=== PATIENT | female | born 1985 | race Caucasian/White ===

== ENCOUNTER 2023-10-10 20:31 | Outpatient (REF) | payer OTHER, SELFPAY ==
[2023-10-14 11:13] LABS: Age Gdln ACOG Testing Note (.); HPV Aptima Negative (Negative); IGP, Aptima HPV, rfx 16/18,45 Note (.)
== END 2023-10-10 20:32 | disposition home or self-care (01) ==
LOC: LAB 20:31
PROVIDERS: Visit Provider Physician Assistant
DX: Z01.419 Encounter for gynecological examination (general) (routine) without abnormal findings (principal)
CPT/HCPCS: 87624; G0145

== ENCOUNTER 2024-10-22 21:37 | Outpatient (REF) | payer OTHER, SELFPAY ==
--- OUTSIDE RECORDS SUMMARY | 2024-10-22 21:41 | XMS_ITS | CCD ---
Author Organization [facility] Care Team Providers [employer] Name Role Phone MISC, DR ALCANTAR Primary Care Unavailable DIA ., DR ESPINOZA Consulting Unavailable DIA ., DR ESPINOZA Admitting Unavailable DIA ., DR ESPINOZA Attending Unavailable MISC, DR ALCANTAR Primary Care Unavailable DIA ., DR ESPINOZA Consulting Unavailable DIA ., DR ESPINOZA Attending Unavailable DIA ., DR ESPINOZA Admitting Unavailable ZIEBER, DR CHET Mcmahan Consulting Unavailable DIA ., DR ESPINOZA Consulting Unavailable MISC, DR ALCANTAR Primary Care Unavailable DIA ., DR ESPINOZA Attending Unavailable DIA ., DR ESPINOZA Admitting Unavailable MISC, DR ALCANTAR Primary Care Unavailable DIA ., DR ESPINOZA Attending Unavailable DIA ., DR ESPINOZA Admitting Unavailable DIA ., DR ESPINOZA Attending Unavailable DIA ., DR ESPINOZA Admitting Unavailable DIA ., DR ESPINOZA Consulting Unavailable MISC, DR ALCANTAR Primary Care Unavailable MORALESCARLITO Attending Unavailable DIA ., DR ESPINOZA Consulting Unavailable MORALESCARLITO Admitting Unavailable MISC, DR ALCANTAR Primary Care Unavailable ZIEBER, DR CHET Mcmahan Consulting Unavailable MORALESCARLITO Consulting Unavailable MISC, DR ALCANTAR Primary Care Unavailable DIA ., DR ESPINOZA Consulting Unavailable DIA ., DR ESPINOZA Attending Unavailable DIA ., DR ESPINOZA Admitting Unavailable DIA ., DR ESPINOZA Consulting Unavailable MISC, DR ALCANTAR Primary Care Unavailable DIA ., DR ESPINOZA Attending Unavailable DIA ., DR ESPINOZA Admitting Unavailable ZIEBER, DR CHET Mcmahan Consulting Unavailable KARASIK ., DR GIBBS Admitting Unavailabl e KARASIK ., DR GIBBS Consulting Unavailabl e KARASIK ., DR GIBBS Attending Unavailabl e MISC, DR ALCANTAR Primary Care Unavailable TALBOTT, DR FRANKLYN Dutton Consulting Unavailable DIA ., DR ESPINOZA Attending Unavailable MISC, DR ALCANTAR Primary Care Unavailable DIA ., DR ESPINOZA Consulting Unavailable DIA ., DR ESPINOZA Admitting Unavailable ZIEBER, DR CHET Mcmahan Consulting Unavailable KARASIK ., DR GIBBS Attending Unavailabl e KARASIK ., DR GIBBS Admitting Unavailabl e MISC, DR ALCANTAR Primary Care Unavailable TALBOTT, DR FRANKLYN Dutton Consulting Unavailable DIA ., DR ESPINOZA Consulting Unavailable DIA ., DR ESPINOZA Consulting Unavailable DIA ., DR ESPINOZA Attending Unavailable DIA ., DR ESPINOZA Admitting Unavailable MISC, DR ALCANTAR Primary Care Unavailable ZIEBER, DR CHET Mcmahan Consulting Unavailable MISC, DR ALCANTAR Primary Care Unavailable DIA ., DR ESPINOZA Consulting Unavailable DIA ., DR ESPINOZA Attending Unavailable DIA ., DR ESPINOZA Admitting Unavailable DIA ., DR ESPINOZA Procedure Practitioner Unavail able ROMERO HENNING Consulting Unavailable MISC, DR ALCANTAR Primary Care Unavailable DIA ., DR ESPINOZA Attending Unavailable DIA ., DR ESPINOZA Admitting Unavailable DIA ., DR ESPINOZA Consulting Unavailable REQUEST, DR JAELYN LISTED Primary Care Unavaila ble DIA ., DR ESPINOZA Attending Unavailable DIA ., DR ESPINOZA Admitting Unavailable ZIEBER, DR CHET Mcmahan Consulting Unavailable MISC, DR ALCANTAR Primary Care Unavailable DIA ., DR ESPINOZA Consulting Unavailable DIA ., DR ESPINOZA Attending Unavailable DIA ., DR ESPINOZA Admitting Unavailable DIA ., DR ESPINOZA Attending Unavailable MISC, DR ALCANTAR Primary Care Unavailable DIA ., DR ESPINOZA Consulting Unavailable DIA ., DR ESPINOZA Admitting Unavailable ROBERTO LIVINGSTON Attending Unavailable Unavailable Primary Care Provider Unavailabl e Medications Current Medications Medication Drug Class(es) Dates Sig (Normalized) Sig (Original) levonorgestrel 0.832424 mg/hr intrauterine system (3 sources) Progestin, Progestin-containing Intrauterine Device Levonorgestrel (Mirena, 52 MG,) 20 MCG/DAY intrauterine device 52 mg by Intrauterine route if needed (5 years) Active 24 hr metFORMIN hydrochloride 500 mg extended release oral tablet (2 sources) Biguanide Start: 10-22-2024 End: 10-17-2025 take 1 tablet by mouth every twenty-four hours at mealtime metFORMIN XR (Glucophage-XR) 500 MG 24 hr tablet Indications: Encounter for weight management Take 1 tablet (500 mg) by mouth in the evening. Take with meals Do not crush, chew, or split. 30 tablet 11 10/22/2024 10/17/2025 Active phentermine hydrochloride 37.5 mg oral tablet (2 sources) Sympathomimetic Amine Anorectic Start: 10-22-2024 End: 11-21-2024 take 1 tablet by mouth before mealtime phentermine (Adipex-P) 37.5 MG tablet Indications: Encounter for weight management Take 1 tablet (37.5 mg) by mouth in the morning. Take before meals. 30 tablet 10/22/2024 11/21/2024 Active SUMAtriptan 50 mg oral tablet (3 sources) Serotonin-1b and Serotonin-1d Receptor Agonist Start: 04-26-2023 take 1 tablet by mouth once SUMAtriptan (Imitrex) 50 MG tablet Take 50 mg by mouth 1 (one) time if needed for migraine 04/26/2023 Active Problems Active Problems Problem Classification Problem Date Documented Date Episodic/Chronic Administrative/social admission (2 sources) Patient encounter status; Translations: [Persons encountering health services in other specified circumstances] 10-22-2024 Episodic Menstrual disorders (4 sources) Irregular menstruation, unspecified; Translations: [IRREGULAR MENSTRUATION UNSPECIFIED] Onset: 11-27-2021 Chronic Other screening for suspected conditions (not mental disorders or infectious disease) (20 sources) Encounter for screening for malignant neoplasm of cervix; Translations: [Encounter for screening for Streptococcus B] Onset: 12-01-2021 Episodic Unclassified (1 source) CONTACT W/AND (SUSP) EXPOS COVID-19; Translations: [CONTACT W/AND (SUSP) EXPOS COVID-19] Onset: 06-21-2022 Past or Other Problems Problem Classification Problem Date Documented Date Episodic/Chronic Immunizations and screening for infectious disease (1 source) Contact with and (suspected) exposure to infections with a predominantly sexual mode of transmission; Translations: [CONTCT W EXPOS INFECT SEXUAL TRNSMS] Onset: 05-22-2022 Episodic Other complications of ; puerperium affecting management of mother (1 source) Other viral diseases complicating childbirth; Translations: [OTH VIRAL DISEASES COMP CHILDBIRTH] Onset: 06-21-2022 Episodic Other complications of ; puerperium affecting management of mother (4 sources) Maternal care for other (suspected) abnormality and damage, not applicable or unspecified; Translations: [MAT CARE OTH ABN DAMGE NA/UNS] Onset: 03-03-2022 Episodic Other complications of (4 sources) Supervision of elderly multigravida, third trimester; Translations: [SUP ELDER MULTIGRAVIDA THIRD TRI] Onset: 06-09-2022 Episodic Other complications of (4 sources) Other specified related conditions, third trimester; Translations: [OTH SPEC PREG RELATED COND 3RD TRI] Onset: 04-07-2022 Episodic Other complications of (1 source) Abnormal ultrasonic finding on screening of mother; Translations: [ABNORM US SCREEN MOTHER] Onset: 02-02-2022 Episodic Other complications of (1 source) Maternal care for benign tumor of corpus uteri, first trimester; Translations: [MAT CARE HUEY TUMR CORPUS UT 1ST TRI] Onset: 11-19-2021 Episodic Other female genital disorders (1 source) Other specified noninflammatory disorders of vagina; Translations: [OTH SPEC NONINFLAMMATORY D/O VAGINA] Onset: 05-22-2022 Episodic Other and delivery including normal (10 sources) Single live ; Translations: [Encounter for supervision of normal , unspecified, unspecified trimester] Onset: 11-27-2021 Episodic Residual codes; unclassified (1 source) 39 weeks gestation of ; Translations: [39 WEEKS GESTATION OF ] Onset: 06-21-2022 Episodic Residual codes; unclassified (1 source) 38 weeks gestation of ; Translations: [38 WEEKS GESTATION OF ] Onset: 06-10-2022 Episodic Residual codes; unclassified (1 source) 37 weeks gestation of ; Translations: [37 WEEKS GESTATION OF ] Onset: 06-01-2022 Episodic Residual codes; unclassified (1 source) 36 weeks gestation of ; Translations: [36 WEEKS GESTATION OF ] Onset: 05-24-2022 Episodic Residual codes; unclassified (1 source) 30 weeks gestation of ; Translations: [30 WEEKS GESTATION OF ] Onset: 04-11-2022 Episodic Residual codes; unclassified (1 source) 20 weeks gestation of ; Translations: [20 WEEKS GESTATION OF ] Onset: 02-02-2022 Episodic Residual codes; unclassified (1 source) 17 weeks gestation of ; Translations: [17 WEEKS GESTATION OF ] Onset: 01-18-2022 Episodic Residual codes; unclassified (1 source) 8 weeks gestation of ; Translations: [8 WEEKS GESTATION OF ] Onset: 11-19-2021 Episodic Unclassified (2 sources) Patient encounter status 10-22-2024 Viral infection (5 sources) Herpesviral infection, unspecified; Translations: [HERPESVIRAL INFECTION UNSPECIFIED] Onset: 06-09-2022 Episodic Results Test Name Value Interpretation Reference Range Facility Urinalysis macro (dipstick) panel (U)on 10-22-2024 Bilirubin, UA Negative Negative - 4(70) +++ mg/dL [facility] Blood, UA Negative Negative - 50 Reynaldo/mcL [facility] Clarity, UA Clear [facility] Color, UA Yellow [facility] Glucose, UA Negative Negative - 2000(110) ++++ mg/dL [facility] Interpretation and review of laboratory results Normal [facility] Ketones, UA Negative Negative - 160(16) ++++ mg/dL [facility] Leukocytes, UA Negative Negative - 500+++ Rubin/mcL [facility] Nitrite, UA Negative Negative - Positive [facility] pH, UA 5.5 5 - 9 [facility] Protein, UA Negative Negative - 2000(20) ++++ mg/dL [facility] Spec Grav, UA 1.02 1 - 1.03 [facility] Urobilinogen, UA 0.2 0.2 - 12 mg/dL [facility] PAP ACOG PANEL 2: 30 to 65on 09-07-2022 . . [facility] Comment on above: Result Comment: Perf ormed at: WB Performed By: #### C VDTB #### [facility] [address] [place] [address] Dr. Sharan Sanchez Age Gdln ACOG Testing 30-65 [facility] Comment on above: Performed By: #### C VDTB #### [facility] [address] [place], [place] [address] Dr. Sharan Sanchez DIAGNOSIS: Comment [facility] Comment on above: Result Comment: NEGA TIVE FOR INTRAEPITHELIAL LESION OR MALIGNANCY. Performed at: WB Performed By: #### C VDTBH #### [facility] [address] [place] [address] Dr. Sharan Sanchez HPV Aptima Negative Normal Negative [facility] Comment on above: Result Comment: This nucleic acid amplification test detects fourteen high-risk HPV types (16,18,31,33,35,39,45,51,52,56,58,59,66,68) without differentiation. Performed at: =G Performed By: #### C VDTBH #### [facility] [address] [address] [address] Sharan Sanchez HPV Genotype Reflex Comment [facility] Comment on above: Result Comment: Crit eria not met, HPV Genotype not performed. Performed at: WB Performed By: #### C VDTBH #### [facility] [address] [place] [address] Dr. Sharan Sanchez Methodology: Comment Normal [facility] Comment on above: Result Comment: This liquid based ThinPrep(R) pap test was screened with the use of an image guided system. Performed at: WB Performed By: #### C VDTBH #### [facility] [address] [place] [address] Dr. Sharan Sanchez Note: Comment Normal [facility] Comment on above: Result Comment: The Pap smear is a screening test designed to aid in the detection of premalignant and malignant conditions of the uterine cervix. It is not a diagnostic procedure and should not be used as the sole means of detecting cervical cancer. Both false-positive and false-negative reports do occur. . Performed at: WB Performed By: #### C VDTBH #### [facility] [address] [address] [address] Sharan Sanchez Performed by: Comment Normal [facility] Comment on above: Result Comment: Prema Acosta, Insurance Customer Service Specialist (ASCP) Performed at: WB Performed By: #### C VDTBH #### [facility] [address] [place] [address] Dr. Sharan Sanchez Specimen adequacy: Comment Normal [facility] Comment on above: Result Comment: Sati sfactory for evaluation. Endocervical and/or squamous metaplastic cells (endocervical component) are present. Performed at: WB Performed By: #### C VDTB #### [facility] [address] [place] [address] Dr. Sharan Sanchez CBC AUTO DIFFon 06-10-2022 BASO # 0.0 103/ul Normal 0.0-0.1 [facility] Comment on above: Performed By: #### C BC #### [facility] [address] [place] [address] Dr. Sharan Sanchez Basophils/100 WBC (Bld) 0.2 % Normal 0.2-2.0 [facility] Comment on above: Performed By: #### C BC #### [facility] [address] [place] [address] Dr. Sharan Sanchez EO # 0.1 103/ul Normal 0.0-0.7 [facility] Comment on above: Performed By: #### C BC #### [facility] [address] [place] [address] Dr. Sharan Sanchez Eosinophils/100 WBC (Bld) 0.5 % Critically low 0.9-7.0 [facility] Comment on above: Performed By: #### C BC #### [facility] [address] [place] [address] Dr. Sharan Sanchez Erythrocyte distribution width (RBC) [Ratio] 13.4 % Normal 11.0-15.0 [facility] Comment on above: Performed By: #### C BC #### [facility] [address] [place] [address] Dr. Sharan Sanchez Hematocrit (Bld) [Volume fraction] 31.9 % Critically low 36.0-48.0 [facility] Comment on above: Performed By: #### C BC #### [facility] [address] [place] [address] Dr. Sharan Sanchez Hemoglobin (Bld) [Mass/Vol] 11.1 g/dL Critically low 12.0-16.0 [facility] Comment on above: Performed By: #### C BC #### [facility] [address] [place] [address] Dr. Sharan Sanchez IG # 0.06 10e3/ul Critically high 0.00-0.03 [facility] Comment on above: Performed By: #### C BC #### [facility] [address] [place] [address] Dr. Sharan Sanchez IG % 0.6 % Critically high 0.0-0.5 [facility] Comment on above: Performed By: #### C BC #### [facility] [address] [place] [address] Dr. hSaran Sanchez LYMPH # 1.2 103/ul Normal 1.2-3.8 [facility] Comment on above: Performed By: #### C BC #### [facility] [address] [place] [address] Dr. Sharan Sanchez Lymphocytes/100 WBC (Bld) 12.8 % Critically low 20.5-60.0 [facility] Comment on above: Performed By: #### C BC #### [facility] [address] [place] [address] Dr. Sharan Sanchez MANUAL DIFF REQ NO Normal [facility] Comment on above: Performed By: #### C BC #### [facility] [address] [place] [address] Dr. Sharan Sanchez MCH (RBC) [Entitic mass] 33.0 pg Normal 26.7-34.0 [facility] Comment on above: Performed By: #### C BC #### [facility] [address] [place] [address] Dr. Sharan Sanchez MCHC (RBC) [Mass/Vol] 34.8 g/dL Normal 29.9-35.2 [facility] Comment on above: Performed By: #### C BC #### [facility] [address] [place] [address] Dr. Sharan Sanchez MCV (RBC) [Entitic vol] 94.9 fL Normal 81.0-99.0 [facility] Comment on above: Performed By: #### C BC #### [facility] [address] [address] [address] Sharan Sanchez MONO # 0.4 103/ul Normal 0.3-0.8 [facility] Comment on above: Performed By: #### C BC #### [facility] [address] [address] [address] Sharan Sanchez Monocytes/100 WBC (Bld) 4.3 % Normal 1.7-12.0 [facility] Comment on above: Performed By: #### C BC #### [facility] [address] [address] [address] Sharan Sanchez NEUT # 7.8 103/ul Critically high 1.4-6.5 [facility] Comment on above: Performed By: #### C BC #### [facility] [address] [place] [address] Dr. Sharan Sanchez Neutrophils/100 WBC (Bld) 81.6 % Critically high 43.0-75.0 [facility] Comment on above: Performed By: #### C BC #### [facility] [address] [place] [address] Dr. Sharan Sanchez Platelet mean volume (Bld) [Entitic vol] 10.9 fL Normal 9.5-13.5 [facility] Comment on above: Performed By: #### C BC #### [facility] [address] [place] [address] Dr. Sharan Sanchez PLT 146 103/ul Critically low 150-450 [facility] Comment on above: Performed By: #### C BC #### [facility] [address] [place] [address] Dr. Sharan Sanchez RBC 3.36 106/ul Critically low 4.20-5.40 [facility] Comment on above: Performed By: #### C BC #### [facility] [address] [place] [address] Dr. Sharan Sanchez WBC 9.6 103/ul Normal 4.0-11.0 [facility] Comment on above: Performed By: #### C BC #### [facility] [address] [place] [address] Dr. Sharan Sanchez Covid-19 PCR ([facility])on 05-14 SARS-CoV-2 (COVID-19) RNA SAVAGE+probe Ql (Unsp spec) Not detected Normal NOT DETECTED [facility] Comment on above: Result Comment: When diagnostic testing is negative, the possibility of a false negative should be considered in the context of a patient's recent exposures and the presence of clinical signs and symptoms consistent with SARS-CoV-2. This test is not yet approved or cleared by the [place] FDA. When there are no FDA-approved or cleared tests available, and other criteria are met, FDA can make tests available under an emergency access mechanism called an Emergency Use Authorization (EUA). The EUA for this test is supported by the [place] of Health and Human Service's declaration that circumstances exist to justify the emergency use of in vitro diagnostics for the detection and/or diagnosis of the virus that causes COVID-19. This EUA will remain in effect for the duration of the COVID-19 declaration justifying emergency of IVDs, unless it is terminated or revoked by the FDA (after which the test may no longer be used). Performed By: #### C VDTBH #### [facility] [address] [place] [address] Dr. Sharan Sanchez CBC AUTO DIFFon 06-09-2022 BASO # 0.0 103/ul Normal 0.0-0.1 [facility] Comment on above: Performed By: #### C VDTBH #### [facility] [address] [place] [address] Dr. Sharan Sanchez Basophils/100 WBC (Bld) 0.2 % Normal 0.2-2.0 [facility] Comment on above: Performed By: #### C VDTBH #### [facility] [address] [place] [address] Dr. Sharan Sanchez EO # 0.0 103/ul Normal 0.0-0.7 [facility] Comment on above: Performed By: #### C VDTBH #### [facility] [address] [place] [address] Dr. Sharan Sanchez Eosinophils/100 WBC (Bld) 0.4 % Critically low 0.9-7.0 [facility] Comment on above: Performed By: #### C VDTBH #### [facility] [address] [place] [address] Dr. Sharan Sanchez Erythrocyte distribution width (RBC) [Ratio] 13.3 % Normal 11.0-15.0 [facility] Comment on above: Performed By: #### C VDTBH #### [facility] [address] [place] [address] Dr. Sharan Sanchez Hematocrit (Bld) [Volume fraction] 37.5 % Normal 36.0-48.0 [facility] Comment on above: Performed By: #### C VDTBH #### [facility] [address] [place] [address] Dr. Sharan Sanchez Hemoglobin (Bld) [Mass/Vol] 12.9 g/dL Normal 12.0-16.0 [facility] Comment on above: Performed By: #### C VDTBH #### [facility] [address] [place] [address] Dr. Sharan Sanchez IG # 0.07 10e3/ul Critically high 0.00-0.03 [facility] Comment on above: Performed By: #### C VDTBH #### [facility] [address] [place] [address] Dr. Sharan Sanchez IG % 0.7 % Critically high 0.0-0.5 [facility] Comment on above: Performed By: #### C VDTBH #### [facility] [address] [place] [address] Dr. Sharan Sanchez LYMPH # 1.7 103/ul Normal 1.2-3.8 [facility] Comment on above: Performed By: #### C VDTBH #### [facility] [address] [place] [address] Dr. Sharan Sanchez Lymphocytes/100 WBC (Bld) 18.4 % Critically low 20.5-60.0 [facility] Comment on above: Performed By: #### C VDTBH #### [facility] [address] [place] [address] Dr. Sharan Sanchez MANUAL DIFF REQ NO Normal [facility] Comment on above: Performed By: #### C VDTBH #### [facility] [address] [place] [address] Dr. Sharan Sanchez MCH (RBC) [Entitic mass] 32.3 pg Normal 26.7-34.0 [facility] Comment on above: Performed By: #### C VDTBH #### [facility] [address] [place] [address] Dr. Sharan Sanchez MCHC (RBC) [Mass/Vol] 34.4 g/dL Normal 29.9-35.2 [facility] Comment on above: Performed By: #### C VDTBH #### [facility] [address] [place] [address] Dr. Sharan Sanchez MCV (RBC) [Entitic vol] 93.8 fL Normal 81.0-99.0 [facility] Comment on above: Performed By: #### C VDTBH #### [facility] [address] [place] [address] Dr. Sharan Sanchez MONO # 0.5 103/ul Normal 0.3-0.8 [facility] Comment on above: Performed By: #### C VDTBH #### [facility] [address] [place] [address] Dr. Sharan Sanchez Monocytes/100 WBC (Bld) 5.8 % Normal 1.7-12.0 [facility] Comment on above: Performed By: #### C VDTBH #### [facility] [address] [place] [address] Dr. Sharan Sanhcez NEUT # 7.0 103/ul Critically high 1.4-6.5 [facility] Comment on above: Performed By: #### C VDTBH #### [facility] [address] [place] [address] Dr. Sharan Sanchez Neutrophils/100 WBC (Bld) 74.5 % Normal 43.0-75.0 [facility] Comment on above: Performed By: #### C VDTBH #### [facility] [address] [address] [address] Sharan Sanchez Platelet mean volume (Bld) [Entitic vol] 10.9 fL Normal 9.5-13.5 [facility] Comment on above: Performed By: #### C VDTBH #### [facility] [address] [address] [address] Sharan Sanchez PLT 195 103/ul Normal 150-450 [facility] Comment on above: Performed By: #### C VDTBH #### [facility] [address] [address] [address] Sharan Sanchez RBC 4.00 106/ul Critically low 4.20-5.40 [facility] Comment on above: Performed By: #### C VDTBH #### [facility] [address] [place] [address] Dr. Sharan Sanchez WBC 9.4 103/ul Normal 4.0-11.0 [facility] Comment on above: Performed By: #### C VDTBH #### [facility] [address] [place] [address] Dr. Sharan Sanchez DRUG SCREEN RAPID (URINE)on 06-09-2022 AMP Negative Normal NEGATIVE [facility] Comment on above: Performed By: #### D RUGRPD #### [facility] [address] [place] [address] Dr. Sharan Sanchez BAR Negative Normal NEGATIVE [facility] Comment on above: Performed By: #### D RUGRPD #### [facility] [address] [place] [address] Dr. Sharan Sanchez BUP Negative Normal NEGATIVE [facility] Comment on above: Performed By: #### D RUGRPD #### [facility] [address] [place] [address] Dr. Sharan Sanchez BZO Negative Normal NEGATIVE [facility] Comment on above: Performed By: #### D RUGRPD #### [facility] [address] [place] [address] Dr. Sharan Sanchez BERTRAM Negative Normal NEGATIVE [facility] Comment on above: Performed By: #### D RUGRPD #### [facility] [address] [place] [address] Dr. Sharan Sanchez CUT-OFFS SEE BELOW Normal [facility] Comment on above: Result Comment: AMP (Amphetamine): 500ng/mL, BAR (Barbituates): 200 ng/mL, BZO (Benzodiazepines): 150 ng/mL, BUP (Buprenorphine): 10 ng/mL, BERTRAM (Cocaine): 150 ng/mL, mAMP (Methamphetamine): 500 ng/mL, MTD (Methadone): 200 ng/mL, OPI (Opiates): 100 ng/mL, OXY (Oxycodone): 100 ng/mL, PCP (Phencyclidine): 25 ng/mL, PPX (Propoxyphene): 300 ng/mL, THC (Cannabinoids): 50 ng/mL, TCA (Trycyclic Antidepressants): 300 ng/mL Performed By: #### D RUGRPD #### [facility] [address] [place] [address] Dr. Sharan Sanchez DRUG CUT HEADER DRUG CLASS TEST SYSTEM CUT-OFF CONCENTRATIONS ARE FOLLOWS: Normal [facility] Comment on above: Performed By: #### D RUGRPD #### [facility] [address] [place] [address] Dr. Sharan Sanchez mAMP Negative Normal NEGATIVE [facility] Comment on above: Performed By: #### D RUGRPD #### [facility] [address] [place] [address] Dr. Sharan Sanchez MTD Negative Normal NEGATIVE [facility] Comment on above: Performed By: #### D RUGRPD #### [facility] [address] [place] [address] Dr. Sharan Sanchez OPI Negative Normal NEGATIVE [facility] Comment on above: Performed By: #### D RUGRPD #### [facility] [address] [place] [address] Dr. Sharan Sanchez OXY Negative Normal NEGATIVE [facility] Comment on above: Performed By: #### D RUGRPD #### [facility] [address] [place] [address] Dr. Sharan Sanchez PCP Negative Normal NEGATIVE [facility] Comment on above: Performed By: #### D RUGRPD #### [facility] [address] [place] [address] Dr. Sharan Sanchez PPX Negative Normal NEGATIVE [facility] Comment on above: Performed By: #### D RUGRPD #### [facility] [address] [place] [address] Dr. Sharan Sanchez TCA Negative Normal NEGATIVE [facility] Comment on above: Performed By: #### D RUGRPD #### [facility] [address] [place] [address] Dr. Sharan Sanchez THC Negative Normal NEGATIVE [facility] Comment on above: Performed By: #### D RUGRPD #### [facility] [address] [place] [address] Dr. Sharan Sanchez RESPIRATORY PANEL PLUSon Adenovirus Not detected Normal NOT DETECTED [facility] Comment on above: Performed By: #### H CVPCRR #### [facility] [address] [place] [address] Dr. Sharan Pimentel. Parapertusis Not detected Normal NOT DETECTED [facility] Comment on above: Performed By: #### H CVPCRR #### [facility] [address] [place] [address] Dr. Sharan Ambriz Pertussis Not detected Normal NOT DETECTED [facility] Comment on above: Performed By: #### H CVPCRR #### [facility] [address] [place] [address] Dr. Sharan Sanchez Chlamydia Pneumoniae Not detected Normal NOT DETECTED [facility] Comment on above: Performed By: #### H CVPCRR #### [facility] [address] [place] [address] Dr. Sharan Sanchez Coronavirus 229E Not detected Normal NOT DETECTED [facility] Comment on above: Performed By: #### H CVPCRR #### [facility] [address] [place] [address] Dr. Sharan Sanchez Coronavirus HKU1 Not detected Normal NOT DETECTED [facility] Comment on above: Performed By: #### H CVPCRR #### [facility] [address] [place] [address] Dr. Sharan Sanchez Coronavirus NL63 Not detected Normal NOT DETECTED [facility] Comment on above: Performed By: #### H CVPCRR #### [facility] [address] [place] [address] Dr. Sharan Sanchez Coronavirus OC43 Not detected Normal NOT DETECTED [facility] Comment on above: Performed By: #### H CVPCRR #### [facility] [address] [place] [address] Dr. Sharan Sanchez Influenza A H1 2009 Not detected Normal NOT DETECTED [facility] Comment on above: Performed By: #### H CVPCRR #### [facility] [address] [place] [address] Dr. Sharan Sanchez Influenza A H3 Not detected Normal NOT DETECTED [facility] Comment on above: Performed By: #### H CVPCRR #### [facility] [address] [place] [address] Dr. Sharan Sanchez Influenza B Not detected Normal NOT DETECTED [facility] Comment on above: Performed By: #### H CVPCRR #### [facility] [address] [place] [address] Dr. Sharan Sanchez Metapneumovirus Not detected Normal NOT DETECTED [facility] Comment on above: Performed By: #### H CVPCRR #### [facility] [address] [place] [address] Dr. Sharan Sanchez Mycoplas. Pneumoniae Not detected Normal NOT DETECTED [facility] Comment on above: Performed By: #### H CVPCRR #### [facility] [address] [place] [address] Dr. Sharan Sanchez Parainfluenza 1 Not detected Normal NOT DETECTED [facility] Comment on above: Performed By: #### H CVPCRR #### [facility] [address] [place] [address] Dr. Sharan Sanchez Parainfluenza 2 Not detected Normal NOT DETECTED [facility] Comment on above: Performed By: #### H CVPCRR #### [facility] [address] [place] [address] Dr. Sharan Sanchez Parainfluenza 3 Not detected Normal NOT DETECTED [facility] Comment on above: Performed By: #### H CVPCRR #### [facility] [address] [place] [address] Dr. Sharan Sanchez Parainfluenza 4 Not detected Normal NOT DETECTED [facility] Comment on above: Performed By: #### H CVPCRR #### [facility] [address] [place] [address] Dr. Sharan Sanchez Rhino/Enterovirus Not detected Normal NOT DETECTED [facility] Comment on above: Performed By: #### H CVPCRR #### [facility] [address] [place] [address] Dr. Sharan Sanchez RP2 Header 1 RESPIRATORY PANEL: VIRUSES Normal [facility] Comment on above: Performed By: #### H CVPCRR #### [facility] [address] [place] [address] Dr. Sharan Sanchez RP2 Header 2 RESPIRATORY PANEL: BACTERIA Normal [facility] Comment on above: Performed By: #### H CVPCRR #### [facility] [address] [place] [address] Dr. Sharan Sanchez RSV Not detected Normal NOT DETECTED [facility] Comment on above: Performed By: #### H CVPCRR #### [facility] [address] [place] [address] Dr. Sharan Sanchez SARS-CoV-2 (COVID-19) RNA SAVAGE+probe Ql (Unsp spec) Not detected Normal NOT DETECTED [facility] Comment on above: Performed By: #### H CVPCRR #### [facility] [address] [place] [address] Dr. Sharan Sanchez TYPE AND SCREENon 06-09-2022 TYPE AND SCREEN Negative Normal [facility] Comment on above: Performed By: #### T NS #### [facility] [address] [place] [address] Dr. 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 Sharan Sanchez Clarity (U) CLEAR Normal CLEAR [facility] Comment on above: Performed By: #### H CVPCRR #### [facility] [address] [place] [address] Dr. Sharan Sanchez Color (U) YELLOW Normal YELLOW [facility] Comment on above: Performed By: #### H CVPCRR #### [facility] [address] [place] [address] Dr. Sharan Sanchez Glucose Ql (U) Negative Normal NEGATIVE [facility] Comment on above: Performed By: #### H CVPCRR #### [facility] [address] [place] [address] Dr. Sharan Sanchez Hemoglobin Ql (U) SMALL Abnormal NEGATIVE [facility] Comment on above: Performed By: #### H CVPCRR #### [facility] [address] [place] [address] Dr. Sharan Sanchez Ketones Ql (U) >=80 Abnormal NEGATIVE [facility] Comment on above: Performed By: #### H CVPCRR #### [facility] [address] [place] [address] Dr. Sharan Sanchez LEUKOCYTES Negative Normal NEGATIVE [facility] Comment on above: Performed By: #### H CVPCRR #### [facility] [address] [place] [address] Dr. Sharan Sanchez Nitrite Ql (U) Negative Normal NEGATIVE [facility] Comment on above: Performed By: #### H CVPCRR #### [facility] [address] [place] [address] Dr. Sharan Sanchez pH (U) 5.5 [pH] Normal 5-9 [facility] Comment on above: Performed By: #### H CVPCRR #### [facility] [address] [place] [address] Dr. Sharan Sanchez SPEC GRAVITY >=1.030 Abnormal 1.005-<=1.025 [facility] Comment on above: Performed By: #### H CVPCRR #### [facility] [address] [place] [address] Dr. Sharan Sanchez UA PROTEIN Negative Normal NEGATIVE/ TRACE [facility] Comment on above: Performed By: #### H CVPCRR #### [facility] [address] [place] [address] Dr. Sharan Sanchez UR MICRO IND INDICATED Normal [facility] Comment on above: Performed By: #### H CVPCRR #### [facility] [address] [place] [address] Dr. Sharan Sanchez Urobilinogen Qn (U) 0.2 {Corrie'U}/dL Normal 0.2 - 1. 0 [facility] Comment on above: Performed By: #### H CVPCRR #### [facility] [address] [place] [address] Dr. Sharan Sanchez URINE MICROSCOPIC ONLYon BACTERIA TRACE Abnormal NONE SEEN [facility] Comment on above: Performed By: #### H CVPCRR #### [facility] [address] [place] [address] Dr. Sharan Sanchez Bacteria identified Cx Nom (U) NOT INDICATED Normal [facility] Comment on above: Performed By: #### H CVPCRR #### [facility] [address] [place] [address] Dr. Sharan Sanchez CAST NONE SEEN Normal NONE SEEN [facility] Comment on above: Performed By: #### H CVPCRR #### [facility] [address] [place] [address] Dr. Sharan Sanchez Crystals LM Nom (Urine sed) NONE SEEN Normal NONE SEEN [facility] Comment on above: Performed By: #### H CVPCRR #### [facility] [address] [place] [address] Dr. Sharan Sanchez Epithelial cells LM Ql (Urine sed) FEW Abnormal NONE SEEN /RARE [facility] Comment on above: Performed By: #### H CVPCRR #### [facility] [address] [place] [address] Dr. Sharan Sanchez MUCOUS NONE SEEN Normal NONE SEEN [facility] Comment on above: Performed By: #### H CVPCRR #### [facility] [address] [address] [address] Sharan Sanchez RBC 2-5 Abnormal 0-2 [facility] Comment on above: Performed By: #### H CVPCRR #### [facility] [address] [address] [address] Sharan Sanchez WBC 0-2 Abnormal NONE SEEN [facility] Comment on above: Performed By: #### H CVPCRR #### [facility] [address] [address] [address] Sharan Sanchez US PREG BIOPHY W NON STRESSo n 06-09-2022 US PREG BIOPHY W NON STRESS EXAMINATION: US PREG BIOPHY W NON STRESS HISTORY: Multigravida of advanced maternal age COMPARISON: No relevant comparison available. TECHNIQUE: Ultrasound biophysical profile was performed in the radiology department. FINDINGS: BREATHING MOVEMENTS: 0.0 GROSS BODY MOVEMENTS: 2.0 TONE: 2.0 QUALITATIVE AMNIOTIC FLUID VOLUME: 2.0 PRESENTATION: CEPHALIC HEART RATE: 132.4 bpm H.B./min AMNIOTIC FLUID VOLUME: 16.6 cm cm GESTATIONAL AGE: 39 weeks 1 days CONCLUSION: Total biophysical profile score: 6.0 Electronically authenticated by: FRANKLYN CHATMAN Date: 2022-06-09 16:03 Normal [facility] US PREG BIOPHY W NON STRESSo n 06-07-2022 US PREG BIOPHY W NON STRESS EXAMINATION: US PREG BIOPHY W NON STRESS HISTORY: Multigravida of advanced maternal age COMPARISON: Ultrasound biophysical 05/28/2022 TECHNIQUE: Ultrasound biophysical profile was performed. FINDINGS: BREATHING MOVEMENTS: 2 GROSS BODY MOVEMENTS: 2 TONE: 2 QUALITATIVE AMNIOTIC FLUID VOLUME: 2 PRESENTATION: CEPHALIC HEART RATE: 126.2 bpm bpm. AMNIOTIC FLUID VOLUME: 15.4 cm GESTATIONAL AGE: 38 weeks 2 days CONCLUSION: Total biophysical profile score 8. Electronically authenticated by: CHET BRAGA Date: 2022-06-07 09:41 Normal [facility] US PREG BIOPHY W NON STRESSo n 05-28-2022 US PREG BIOPHY W NON STRESS EXAMINATION: US PREG BIOPHY W NON STRESS HISTORY: Multigravida of advanced maternal age COMPARISON: Ultrasound biophysical 05/21/2022 TECHNIQUE: Ultrasound biophysical profile was performed. FINDINGS: BREATHING MOVEMENTS: 2.0 GROSS BODY MOVEMENTS: 2.0 TONE: 2.0 QUALITATIVE AMNIOTIC FLUID VOLUME: 2.0 PRESENTATION: Cephalic HEART RATE: 130.9 bpm bpm. AMNIOTIC FLUID VOLUME: 12.3 cm GESTATIONAL AGE: 37 weeks 3 days CONCLUSION: Total biophysical profile score 8.0. Electronically authenticated by: CHET BRAGA Date: 2022-05-28 16:36 Normal [facility] CHLAMYDIA/GONOCOCCUS SAVAGE (SW AB/URINE/PAPon 05-23-2022 Chlamydia trachomatis, SAVAGE Negative Normal Negative [facility] Comment on above: Performed By: #### C T/NGNA #### [facility] [address] [place] [address] Dr. Sharan Sanchez Neisseria gonorrhoeae, SAVAGE Negative Normal Negative [facility] Comment on above: Performed By: #### C T/NGNA #### [facility] [address] [place] [address] Dr. Sharan Sanchez US PREG BIOPHY W NON STRESSo n 05-21-2022 US PREG BIOPHY W NON STRESS EXAMINATION: US PREG BIOPHY W NON STRESS HISTORY: Multigravida of advanced maternal age COMPARISON: No relevant comparison available. TECHNIQUE: Ultrasound biophysical profile was performed in the radiology department. FINDINGS: BREATHING MOVEMENTS: 2.0 GROSS BODY MOVEMENTS: 2.0 TONE: 2.0 QUALITATIVE AMNIOTIC FLUID VOLUME: 2.0 PRESENTATION: CEPHALIC HEART RATE: 132.4 bpm H.B./min AMNIOTIC FLUID VOLUME: 18.3 cm cm GESTATIONAL AGE: 36 weeks 3 days CONCLUSION: Total biophysical profile score: 8.0 Electronically authenticated by: FRANKLYN CHATMAN Date: 2022-05-21 16:01 Normal [facility] VAGINITIS/VAGINOSIS DNA PROB David 05-21-2022 Leticia species Negative Normal Negative [facility] Comment on above: Performed By: #### H CVPCRR #### [facility] [address] [place] [address] Dr. Sharan Sanchez Gardnerella vaginalis Negative Normal Negative [facility] Comment on above: Performed By: #### H CVPCRR #### [facility] [address] [place] [address] Dr. Sharan Sanchez Trichomonas vaginalis Negative Normal Negative [facility] Comment on above: Performed By: #### H CVPCRR #### [facility] [address] [place] [address] Dr. Sharan Sanchez GROUP B STREP CULTUREon 12-0 S. agalactiae Ag Ql (Unsp spec) Culture Observations: NEGATIVE FOR GROUP B STREPTOCOCCUS. Normal [facility] Comment on above: Performed By: #### G BSCX #### [facility] [address] [place] [address] Dr. Sharan Sanchez US PREG BIOPHY W NON STRESSo n 04-07-2022 US PREG BIOPHY W NON STRESS EXAMINATION: US PREG BIOPHY W NON STRESS HISTORY: Irregular heart rhythm COMPARISON: Ultrasound anatomy 01/29/2022 TECHNIQUE: Ultrasound biophysical profile was performed. FINDINGS: BREATHING MOVEMENTS: 2.0 GROSS BODY MOVEMENTS: 2.0 TONE: 2.0 QUALITATIVE AMNIOTIC FLUID VOLUME: 2.0 PRESENTATION: CEPHALIC HEART RATE: 154.3 bpm bpm. AMNIOTIC FLUID VOLUME: 15.9 cm GESTATIONAL AGE: 30 weeks 1 days CONCLUSION: Total biophysical profile score 8.0. Electronically authenticated by: CHET BRAGA Date: 2022-04-07 21:13 Normal [facility] GLUCOSE - 1HRon 03-19-2022 Glucose [Mass/Vol] 96 mg/dL Normal 74-106 [facility] Comment on above: Performed By: #### C VDTBH #### [facility] [address] [place] [address] Dr. Sharan Sanchez HEMOGRAM AND PLATELon 2021 Hematocrit (Bld) [Volume fraction] 34.1 % Critically low 36.0-48.0 [facility] Comment on above: Performed By: #### C VDTBH #### [facility] [address] [place] [address] Dr. Sharan Sanchez Hemoglobin (Bld) [Mass/Vol] 11.5 g/dL Critically low 12.0-16.0 [facility] Comment on above: Performed By: #### C VDTBH #### [facility] [address] [address] [address] Sharan Sanchez MCH (RBC) [Entitic mass] 32.4 pg Normal 26.7-34.0 [facility] Comment on above: Performed By: #### C VDTBH #### [facility] [address] [address] [address] Sharan Sanchez MCHC (RBC) [Mass/Vol] 33.7 g/dL Normal 29.9-35.2 [facility] Comment on above: Performed By: #### C VDTBH #### [facility] [address] [address] [address] Sharan Sanchez MCV (RBC) [Entitic vol] 96.1 fL Normal 81.0-99.0 [facility] Comment on above: Performed By: #### C VDTBH #### [facility] [address] [place] [address] Dr. Sharan Sanchez PLT 237 103/ul Normal 150-450 [facility] Comment on above: Performed By: #### C VDTBH #### [facility] [address] [address] [address] Sharan Sanchez RBC 3.55 106/ul Critically low 4.20-5.40 [facility] Comment on above: Performed By: #### C VDTBH #### [facility] [address] [address] [address] Sharan Sanchez WBC 8.4 103/ul Normal 4.0-11.0 [facility] Comment on above: Performed By: #### C VDTBH #### [facility] [address] [place] [address] Dr. Sharan Sanchez US PREG REEVAL ABNon 022 US PREG REEVAL ABN EXAMINATION: US PREG REEVAL ABN HISTORY: condition affecting obstetrical care of mother ; follow-up echogenic focus within left cardiac ventricle COMPARISON: Ultrasound anatomy 01/29/2022 FINDINGS: Persisting echogenic focus within the left cardiac ventricle appears to elongate with the Yessica ventricle, likely representing a chordae tendineae. IMPRESSION: 1. Single live intrauterine 25 weeks, 1 day. 2. Left cardiac ventricle findings on today's study suggest the previously seen echogenic focus may be artifactual and related to a normal chordae tendineae. Electronically authenticated by: CHET BRAGA Date: 2022-03-03 17:23 Normal [facility] US PREG ANATOMY SINGLEon US PREG ANATOMY SINGLE EXAMINATION: US PREG ANATOMY SINGLE HISTORY: screening COMPARISON: No relevant comparison available. TECHNIQUE: Transabdominal sonographic examination was performed for obstetrical and evaluation. FINDINGS: Number: 1 Heart Rate: 157.9 bpm Amniotic Fluid Volume: Subjectively low. Placental Location: POSTERIOR with lower margin 5.0 cm from os. Cervix Length: 4.1 cm, closed. ANATOMY: Normal Structures -cerebellum, choroid plexus, cisterna magna, lateral cerebral ventricles, orbits, midline falx, hard palate, four-chamber heart, RVOT, LVOT, stomach, kidneys, bladder, umbilical cord insertion into abdomen, three-vessel cord, cervical spine, thoracic spine, lumbar spine, sacral spine, right upper extremity, left upper extremity, right lower extremity, left lower extremity. SUBOPTIMALLY SEEN: None ABNORMALITIES: Echogenic focus within left ventricle of heart. BIOMETRY: BPD: 4.3 cm 19 weeks 1 days ; 7% HC: 17.4 cm 19 weeks 6 days; 21% AC: 16.7 cm 21 weeks 5 days; 83% FL: 3.3 cm 20 weeks 3 days; 43% EFW:388.2 grams; 74% FL/AC: 20.0 FL/BPD: 76.9 HC/AC: 1.0 GESTATIONAL AGE: Age by EDC: 20 weeks 3 days NURYS by EDC: 06/15/2022 Age by current US: 20 weeks 2 days NURYS by current US: 06/16/2022 IMPRESSION: 1. Single live intrauterine with growth detailed above. 2. Echogenic focus within left cardiac ventricle; nonspecific but typically associated with the trisomy syndromes. Electronically authenticated by: CHET BRAGA Date: 2022-01-29 16:44 Normal [facility] AFP MATERNAL FOR SPINA BIFID Aon 01-17-2022 AFP MoM 2.14 Normal [facility] Comment on above: Performed By: #### C [facility] #### [facility] [address] [place] [address] Dr. Sharan Sanchez AFP Value 92.4 ng/mL Normal [facility] Comment on above: Performed By: #### C VDTBH #### [facility] [address] [address] [address] Sharan Sanchez AFP, Serum for Spina Bifida Report Normal [facility] Comment on above: Performed By: #### C VDTBH #### [facility] [address] [address] [address] Sharan Snachez Comment Comment Normal [facility] Comment on above: Result Comment: Nawaf Pink, Ph.D., [facility] Director . References: Available Upon Request. . Multiples Of Median Cutoffs For AFP Elevations Dixon 2.5 Black 2.8 IDD 2.0 Twins 4.5 Abbreviation Definitions IDD - Insulin Dep Diabetes OSBR - Open Spina Bifida Risk . For further inquiries contact [employer] at [phone]. . This test was developed and its performance characteristics determined by [employer]. It has not been cleared or approved by the Food and Drug Administration. Performed By: #### C VDTBH #### [facility] [address] [address] [address] Sharan Sanchez Gest Age Collection Date 18.4 weeks Normal [facility] Comment on above: Performed By: #### C VDTBH #### [facility] [address] [address] [address] Sharan Sanchez Gestat, Age Based on LMP Normal [facility] Comment on above: Result Comment: Reca lculations are not recommended when gestational dating by LMP and ultrasound are within 10 days. Performed By: #### C VDTBH #### [facility] [address] [address] [address] Sharan Sanchez Insulin Dep Diabetes No Normal [facility] Comment on above: Performed By: #### C VDTBH #### [facility] [address] [place] [address] Dr. Sharan Sanchez Interpretation Comment Normal [facility] Comment on above: Result Comment: Inte rpretation: Screen Negative . This result is screen negative for OSB. The AFP MoM calculated is based on the gestational age provided. MS-AFP can identify up to 80% of open neural tube defects. Closed neural tube defects and some open defects may not be detected by this test. This test does not screen for Down Syndrome or Trisomy 18. If screening for Down Syndrome or Trisomy 18 is desired, contact [employer] to discuss available options. The [place] recommends amniocentesis be offered to women age 35 and older. Performed By: #### C VDTBH #### [facility] [address] [place] [address] Dr. Sharan Sanchez [age] Normal [facility] Comment on above: Performed By: #### C VDTBH #### [facility] [address] [place] [address] Dr. Sharan Sanchez Multiple Gestation No Normal [facility] Comment on above: Performed By: #### C VDTBH #### [facility] [address] [place] [address] Dr. Sharan Sanchez OSBR Risk 1 IN 594 Normal [facility] Comment on above: Performed By: #### C VDTBH #### [facility] [address] [place] [address] Dr. Sharan Sanchez PDF . Normal [facility] Comment on above: Performed By: #### C VDTBH #### [facility] [address] [place] [address] Dr. Sharan Sanchez [facility] Comment on above: Performed By: #### C VDTBH #### [facility] [address] [place] [address] Dr. Sharan Sanchez Test Results: Negative Normal [facility] Comment on above: Performed By: #### C VDTBH #### [facility] [address] [place] [address] Dr. Sharan Sanchez RUBELLA AB IGGon 12-01-2021 Rubella Antibodies, IgG 1.07 index Normal Immune >0.99 [facility] Comment on above: Result Comment: Non- immune <0.90 Equivocal 0.90 - 0.99 Immune >0.99 Performed By: #### C VDTBH #### [facility] [address] [address] [address] Sharan Sanchez HEP B SURFACE ANTIGEN SCREEN on 11-28-2021 HBsAg Screen Negative Normal Negative [facility] Comment on above: Performed By: #### H BSANS #### [facility] [address] [address] [address] Sharan Sanchez HEPATITIS C VIRUS AB W/ REFL EX QUANTon 11-28-2021 HCV AB 0.1 s/co ratio Normal 0.0-0.9 [facility] Comment on above: Performed By: #### H CVPCRR #### [facility] [address] [place] [address] Dr. Sharan Sanchez Interpretation: Comment Normal [facility] Comment on above: Result Comment: Nega tive Not infected with HCV, unless recent infection is suspected or other evidence exists to indicate HCV infection. Performed By: #### H CVPCRR #### [facility] [address] [address] [address] Sharan Sanchez HIV 1 AND 2 WITH REFLEXon HIV Screen 4th Generation wRfx Non-Reactive Normal Non Reactive [facility] Comment on above: Result Comment: HIV Negative HIV-1/HIV-2 antibodies and HIV-1 p24 antigen were NOT detected. There is no laboratory evidence of HIV infection. Performed By: #### H CVPCRR #### [facility] [address] [place] [address] Dr. Sharan Sanchez RPR QUANTon 11-28-2021 Rapid Plasma Reagin, Quant Non-Reactive Normal NonRea<1:1 [facility] Comment on above: Result Comment: Plea se Note: This test does not meet current guidelines for screening and diagnosis of syphilis. This test is intended for following treatment response in patients being treated for syphilis infection. To screen for syphilis infection, a reflex cascade that includes both RPR and a treponema-specific assay should be utilized, such as Treponema pallidum (Syphilis) Screening [facility] (052987) or Rapid Plasma Reagin (RPR) Test With Reflex to Quantitative RPR and Confirmatory Treponema pallidum Antibodies (138462). Performed By: #### C BC #### [facility] [address] [address] [address] Sharan Sanchez CBC AUTO DIFFon 11-27-2021 BASO # 0.0 103/ul Normal 0.0-0.1 [facility] Comment on above: Performed By: #### C BC #### [facility] [address] [address] [address] Sharan Sanchez Basophils/100 WBC (Bld) 0.2 % Normal 0.2-2.0 [facility] Comment on above: Performed By: #### C BC #### [facility] [address] [address] [address] Sharan Sanchez EO # 0.1 103/ul Normal 0.0-0.7 [facility] Comment on above: Performed By: #### C BC #### [facility] [address] [place] [address] Dr. Sharan Sanchez Eosinophils/100 WBC (Bld) 0.8 % Critically low 0.9-7.0 [facility] Comment on above: Performed By: #### C BC #### [facility] [address] [place] [address] Dr. Sharan Sanchez Erythrocyte distribution width (RBC) [Ratio] 12.2 % Normal 11.0-15.0 [facility] Comment on above: Performed By: #### C BC #### [facility] [address] [place] [address] Dr. Sharan Sanchez Hematocrit (Bld) [Volume fraction] 37.4 % Normal 36.0-48.0 [facility] Comment on above: Performed By: #### C BC #### [facility] [address] [place] [address] Dr. Sharan Sanchez Hemoglobin (Bld) [Mass/Vol] 12.8 g/dL Normal 12.0-16.0 [facility] Comment on above: Performed By: #### C BC #### [facility] [address] [place] [address] Dr. Sharan Sanchez IG # 0.02 10e3/ul Normal 0.00-0.03 [facility] Comment on above: Performed By: #### C BC #### [facility] [address] [place] [address] Dr. Sharan Sanchez IG % 0.2 % Normal 0.0-0.5 [facility] Comment on above: Performed By: #### C BC #### [facility] [address] [place] [address] Dr. Sharan Sanchez LYMPH # 2.1 103/ul Normal 1.2-3.8 [facility] Comment on above: Performed By: #### C BC #### [facility] [address] [place] [address] Dr. Sharan Sanchez Lymphocytes/100 WBC (Bld) 24.6 % Normal 20.5-60.0 [facility] Comment on above: Performed By: #### C BC #### [facility] [address] [place] [address] Dr. Sharan Sanhcez MANUAL DIFF REQ NO Normal [facility] Comment on above: Performed By: #### C BC #### [facility] [address] [place] [address] Dr. Sharan Sanchez MCH (RBC) [Entitic mass] 31.9 pg Normal 26.7-34.0 [facility] Comment on above: Performed By: #### C BC #### [facility] [address] [place] [address] Dr. Sharan Sanchez MCHC (RBC) [Mass/Vol] 34.2 g/dL Normal 29.9-35.2 [facility] Comment on above: Performed By: #### C BC #### [facility] [address] [place] [address] Dr. Sharan Sanchez MCV (RBC) [Entitic vol] 93.3 fL Normal 81.0-99.0 [facility] Comment on above: Performed By: #### C BC #### [facility] [address] [place] [address] Dr. Sharan Sanchez MONO # 0.4 103/ul Normal 0.3-0.8 [facility] Comment on above: Performed By: #### C BC #### [facility] [address] [place] [address] Dr. Shaarn Sanchez Monocytes/100 WBC (Bld) 5.1 % Normal 1.7-12.0 [facility] Comment on above: Performed By: #### C BC #### [facility] [address] [place] [address] Dr. Sharan Sanchez NEUT # 5.9 103/ul Normal 1.4-6.5 [facility] Comment on above: Performed By: #### C BC #### [facility] [address] [place] [address] Dr. Sharan Sanchez Neutrophils/100 WBC (Bld) 69.1 % Normal 43.0-75.0 [facility] Comment on above: Performed By: #### C BC #### [facility] [address] [place] [address] Dr. Sharan Sanchez Platelet mean volume (Bld) [Entitic vol] 10.2 fL Normal 9.5-13.5 [facility] Comment on above: Performed By: #### C BC #### [facility] [address] [place] [address] Dr. Sharan Sanchez PLT 267 103/ul Normal 150-450 [facility] Comment on above: Performed By: #### C BC #### [facility] [address] [place] [address] Dr. Sharan Sanchez RBC 4.01 106/ul Critically low 4.20-5.40 [facility] Comment on above: Performed By: #### C BC #### [facility] [address] [place] [address] Dr. Sharan Sanchez WBC 8.5 103/ul Normal 4.0-11.0 [facility] Comment on above: Performed By: #### C BC #### [facility] [address] [place] [address] Dr. Sharan Sanchez CULTURE URINEon 11-27-2021 CULTURE URINE Culture Observations : LIGHT GROWTH OF MIXED GENITAL SHUKRI. NO POTENTIAL PATHOGENS SEEN. Normal [facility] Comment on above: Performed By: #### C BC #### [facility] [address] [address] [address] Sharan Sanchez GLYCOHEMOGLOBIN A1Con 2021 ADA RECOMMENDATION SEE BELOW Normal [facility] Comment on above: Result Comment: ADA RECOMMENDED LIMIT 4.0 - 6.0 ADA THERAPEUTIC TARGET < 7.0 ACTION SUGGESTED > 7.0 Performed By: #### C VDTBH #### [facility] [address] [address] [address] Sharan Sanchez Glucose [Mass/Vol] 100 mg/dL Normal [facility] Comment on above: Performed By: #### C VDTBH #### [facility] [address] [place] [address] Dr. Sharan Sanchez HbA1c (Bld) [Mass fraction] 5.1 % Normal 4.5-6.2 [facility] Comment on above: Performed By: #### C VDTBH #### [facility] [address] [place] [address] Dr. Sharan Sanchez AVILA BOX TEST PT SEND OUTo n 11-27-2021 SENT TO REF LAB 11/27/2021 Normal [facility] Comment on above: Performed By: #### C VDTBH #### [facility] [address] [place] [address] Dr. Sharan Sanchez TYPE AND SCREENon 11-27-2021 TYPE AND SCREEN Negative Normal [facility] Comment on above: Performed By: #### C BC #### [facility] [address] [place] [address] Dr. Sharan Sanchez US PREG TVon 11-13-2021 US PREG TV EXAMINATION: US PREG TV HISTORY: Missed period COMPARISON: No relevant comparison available. FINDINGS: GESTATIONAL SAC: Present and normal appearing. POLE: Present and normal appearing. YOLK SAC: Present. CARDIAC: Present. UTERUS: Small 1.3 cm leiomyoma within lower left uterine wall. OVARIES: Right: Normal. Left: Corpus lutein cyst. CERVIX: 5.1 cm in length and closed. CUL-DE-SAC: Normal. OTHER: None. AGE BY LMP: 8 weeks, 3 days NURYS BY LMP: 06/22/2022 AGE BY US CRL: 9 weeks, 3 days NURYS BY US CRL: 06/15/2022 IMPRESSION: 1. Single live intrauterine . 2. Small leiomyoma noted within lower left uterine wall. Electronically authenticated by: CHET BRAGA Date: 2021-11-13 17:35 Normal [facility] Vital Signs Date Time Vital Sign Value Performing Clinician Facility 10-22-2024 16:24-0400 Body mass index (BMI) [Ratio] 32.31 kg/m2 Olga Dia DO Work Phone: [facility] 10-22-2024 16:24-0400 Body weight 82.74 kg Olga Dia DO Work Phone: [facility] 10-22-2024 16:24-0400 Diastolic blood pressure 64 mm[Hg] Olga Dia DO Work Phone: [facility] 10-22-2024 16:24-0400 Systolic blood pressure 108 mm[Hg] Olga Dia DO Work Phone: [facility] 01-17-2022 02:05-0400 Body weight 80.[address] ALCANTAR [facility] Comment on above: Performed By: #### CVDTBH #### [facility] [address] [place] [address] Dr. Sharan Sanchez Encounters Encounter Date Encounter Type Care Provider Facility Start: 10-22-2024 End: 10-22-2024 Patient encounter procedure Olga Dia [employer] Work Phone: [facility] Start: 10-22-2024 End: 10-22-2024 Periodic preventive med est patient 40-64yrs Olga Dia DO Work Phone: [facility] Comment on above: Encounter for weight management (Primary Dx); Well woman exam with routine gynecological exam; Breast cancer screening by mammogram Start: 10-22-2024 End: 10-22-2024 Bamboo flowsheet Olga Dia DO Work Phone: [facility] Start: 10-22-2024 End: 10-22-2024 Bamboo flowsheet Olga Dia DO Work Phone: [facility] Start: 10-10-2023 End: 10-10-2023 ambulatory ROBERTO LIVINGSTON Not Available Start: 08-30-2022 End: 08-30-[address] DOCTOR JOHNSON Facility:[facility] Start: 07-22-[address] DOCTOR JOHNSON Facility :[facility] Start: 06-09-2022 End: 06-09-[address] DOCTOR JOHNSON Facility:[facility] Start: 06-09-2022 End: 06-12-2022 Evaluation and management of inpatient DR DOCTOR JOHNSON Facility:[facility] Start: 06-09-2022 End: 06-09-[address] SAI PAULINO . Facility:[facility] Start: 06-03-2022 End: 06-03-[address] OLGA ALVARES . Facility:[facility] Start: 05-28-2022 End: 05-28-2022 ambulatory CARLITO NIELSEN Facility:[facility] Start: 05-21-2022 End: 05-21-[address] SAI PAULINO . Facility:[facility] Start: 05-19-2022 End: 05-19-[address] OLGA ALVARES . Facility:[facility] Start: 04-07-2022 End: 04-07-[address] OLGA ALVARES . Facility:[facility] Start: 03-19-2022 End: 03-20-[address] OLGA ALVARES . Facility:[facility] Start: 03-03-2022 End: 03-04-[address] OLGA ALVARES . Facility:[facility] Start: 01-29-2022 End: 01-30-[address] OLGA ALVARES . Facility:[facility] Start: 01-15-2022 End: 01-16-[address] OLGA ALVARES . Facility:[facility] Start: 11-27-2021 End: 11-28-[address] DOCTOR JOHNSON Facility:[facility] Start: 11-13-2021 End: 11-14-[address] DOCTOR JOHNSON Facility: Procedures Date Procedure Procedure Detail Performing Clinician Start: 10-22-2024 Urnls dip stick/tabl et rgnt non-auto w/o micrscp Olga Alvares DO Work Phone: Start: 06-09-2022 Extraction of Produc ts of Conception, Low Cervical, Open Approach DR DOCTOR JOHNSON Plan of Treatment Date Care Activity Detail Author Start: 10-22-2024 End: 10-22-2024 Patient encounter procedure 10/22/2024 4:00 PM EDT Office Visit [facility] [address] [place] [id number] Olga Alvares, [address] [place] [address] Arrived [facility] Comment on above: Arrived THIN PREP TIS PAP AN D HR HPV DNA THIN PREP TIS PAP AND HR HPV DNA Pathology and Cytology Routine Well woman exam with routine gynecological exam Ordered: 10/22/2024 [facility] Work Phone: Comment on above: Ordered: 10/22/2024 Payers Date Payer Category Payer [facility] Care O (unspecified) [employer] [id number] 1.315 1984 Unknown [id number] 79.2.593 1984 Unknown [id number] [id number] 79.2.593 1984 Unknown [id number] [id number] 79.2.593 1984 Unknown [id number] 2.16.840.1.694353.3.5 79.2.593 1984 Unknown [id number] 2.16.840.1.233935.3.5 79.2.593 1984 Unknown [id number] 2.16.840.1.300162.3.5 79.2.593 1984 Unknown [id number] 2.16.840.1.671472.3.5 79.2.593 1984 Unknown [id number] 2.16.840.1.363667.3.5 79.2.593 1984 Unknown [id number] 2.16.840.1.356812.3.5 79.2.593 1984 Unknown [id number] 2.16.840.1.456874.3.5 79.2.593 1984 Unknown [id number] 2.16.840.1.665850.3.5 79.2.593 1984 Unknown [id number] 2.16.840.1.643014.3.5 79.2.593 1984 Unknown [id number] 2.16.840.1.522849.3.5 79.2.593 1984 Unknown [id number] 2.16.840.1.813609.3.5 79.2.593 1984 Unknown [id number] 2.16.840.1.912125.3.5 79.2.593 1984 Unknown [id number] 2.16.840.1.285577.3.5 79.2.593 1984 Unknown [id number] 2.16.840.1.064845.3.5 79.2.1259 1959 Private Health Insurance [id number] Private Health Insurance [id number] Self-pay Unknown [id number] 79.2.593 Social History Date Type Detail Facility Start: 08-18-2023 Tobacco smoking stat [facility] Tobacco smoking consumption unknown [facility] Start: 10-10-2023 End: 10-22-2024 Alcoholic beverage intake Not Asked [facility] Start: 08-18-2023 Alcohol Comment Moderate alcohol use [facility] Start: 1985 Sex assigned at Not on file [facility] Gender identity Not on file [facility] are History of Present illness Narrative 10-22-2024 ARMINDA Herbert - 10/22/2024 4:00 PM EDT Note Date & Type Note Facility 10-22-2024 History of Presen t illness Narrative Reason for Appointment: Patient ID: Bobby Corbett is a 39 y.o. female who presents for Well Women Visit Patient presents today for Annual Exam. MEDICATIONS Current Outpatient Medications Medication Instructions Mirena (52 MG) 52 mg, As needed SUMAtriptan (IMITREX) 50 mg, Once as needed ALLERGIES No Known Allergies PROBLEMS Active Ambulatory Problems Diagnosis Date Noted No Active Ambulatory Problems Resolved Ambulatory Problems Diagnosis Date Noted No Resolved Ambulatory Problems Past Medical History: Diagnosis Date Echogenic focus of heart, , affecting care of mother, antepartum, not applicable or unspecified fetus Herpes infection Migraine headache (CMS/HCC) Nonsmoker HISTORY PAST MEDICAL HISTORY SOCIAL HISTORY Past Medical History: Diagnosis Date Echogenic focus of heart, , affecting care of mother, antepartum, not applicable or unspecified fetus Herpes infection Migraine headache (CMS/HCC) Nonsmoker Social History Tobacco Use Smoking status: Not on file Smokeless tobacco: Not on file Substance Use Topics Alcohol use: Not on file Comment: Moderate alcohol use Drug use: Not on file FAMILY HISTORY Family History Problem Relation Name Age of Onset Migraines Mother Diabetes Father Hypertension Father Hyperlipidemia Father Asthma Brother Intrinsic Arthritis Maternal Grandmother Heart disease Maternal Grandmother Hyperlipidemia Maternal Grandmother Hypertension Maternal Grandmother Hyperlipidemia Maternal Grandfather Hypertension Maternal Grandfather Heart disease Maternal Grandfather Diabetes Paternal Grandmother Arthritis Paternal Grandmother Hyperlipidemia Paternal Grandfather Hypertension Paternal Grandfather Heart disease Paternal Grandfather SURGICAL HISTORY Past Surgical History: Procedure Laterality Date TONSILLECTOMY WISDOM TOOTH EXTRACTION REVIEW OF SYSTEMS Review of Systems: Review of Systems Constitutional: Negative. HENT: Negative. Eyes: Negative. Respiratory: Negative. Cardiovascular: Negative. Gastrointestinal: Negative. Genitourinary: Negative. Musculoskeletal: Negative. Skin: Negative. Neurological: Negative. All other systems reviewed and are negative. Hematological: Negative. Endocrine: Negative. Allergic/Immunologic: Negative. OBJECTIVE Objective: Physical Exam Constitutional: Appearance: Normal appearance. She is normal weight. HENT: Head: Normocephalic. Cardiovascular: Rate and Rhythm: Normal rate. Pulses: Normal pulses. Pulmonary: Effort: Pulmonary effort is normal. Breath sounds: Normal breath sounds. Abdominal: Palpations: Abdomen is soft. Musculoskeletal: General: Normal range of motion. Neurological: General: No focal deficit present. Mental Status: She is alert and oriented to person, place, and time. Psychiatric: Mood and Affect: Mood normal. Behavior: Behavior normal. Thought Content: Thought content normal. Judgment: Judgment normal. Vitals and nursing note reviewed. Vitals: Estimated body mass index is 32.31 kg/m as calculated from the following: Height as of 10/10/23: 5' 3 . Weight as of this encounter: 182 lb 6.4 oz. BP: 108/64 No LMP recorded. ASSESSMENT & PLAN ICD-10-CM 1. Well woman exam with routine gynecological exam Z01.419 POCT urinalysis dipstick manually resulted THIN PREP TIS PAP AND HR HPV DNA CANCELED: POCT , urine manually resulted 2. Breast cancer screening by mammogram Z12.31 CANCELED: Bilateral screening mammogram CANCELED: Bilateral screening mammogram Annual: Patient presents today for an annual exam. Patient states she is doing well and has no complaints. Pap was obtained without difficulty and patient given mammogram order to have scheduled/obtained. Orders Placed This Encounter Procedures POCT urinalysis dipstick manually resulted Follow Up: Patient is to return in one year for annual unless needed otherwise. Documented by ARMINDA Herbert on behalf of: Olga Alvares DO documented in this encounter [facility] Clinical Note 06-09-2022 Note Date & Type Note Facility 06-09-2022 Note OPERATIVE NOTE OPERATION DATE: 06/09/2022 PROCEDURE: Primary low transverse section. PREOPERATIVE DIAGNOSIS: 1. Intrauterine at 39 weeks. 2. Active herpes simplex virus lesion. POSTOPERATIVE DIAGNOSIS: 1. Intrauterine at 39 weeks. 2. Active herpes simplex virus lesion. ANESTHESIA: Spinal with Duramorph. SURGEON: Olga Alvares M.D. NUMBERER AND WIRER: VEL Sharif URINE OUTPUT: Yellow and clear. BLOOD LOSS: 575 mL. SPECIMEN: Placenta. FINDINGS: Viable male. Apgars and weight unknown at this time. PROCEDURE: Patient was taken back to the Operating Room where she was given a spinal anesthesia with Duramorph without difficulty. She was prepped and draped in the normal sterile fashion. A Pfannenstiel skin incision was then made 2 cm above the symphysis pubis and carried down to underlying rectus fascia using a Bovie. The fascia was incised in the midline and extended laterally using Krishnan scissors. Two Drew clamps were placed on the superior aspect of the fascia and dissected off the underlying rectus muscles. The same was performed on the inferior aspect as well. The muscles were then in the midline. Peritoneum was identified and entered bluntly. The peritoneum was then extended superiorly and inferiorly with good visualization of the bladder. The bladder blade was inserted. A low transverse incision was made on the patient's uterus and extended laterally digitally. The infant was then delivered atraumatically after the bladder blade was removed in the cephalic position. The cord was clamped and cut. Cord blood was obtained. The infant was handed off to awaiting team. The patient's placenta was spontaneously delivered. The uterus was then exteriorized. The uterus was cleared of all clots and debris. The bladder blade was reinserted. The patient's uterine incision was closed using #0 Vicryl in a running lock fashion. Excellent hemostasis was assured. The uterus was then returned to the patient's abdomen. The patient's abdomen was copiously irrigated using warm saline. Peritoneal gutters were cleared of all clots and debris. Again excellent hemostasis was assured. The patient's peritoneum was closed using 3-0 Vicryl in a running fashion. The patient's fascia was closed using #0 Vicryl in a running fashion. The patient's skin was closed using 4-0 Vicryl subcuticularly. The patient tolerated the procedure well. Sponge, lap, and needle counts were correct x2. The patient was taken to the Recovery Room in stable condition. [facility] Discharge summary note 06-09-2022 Note Date & Type Note Facility 06-09-2022 Note DISCHARGE SUMMARY DISCHARGE DATE: 06/12/2022 PRIMARY DIAGNOSES: 1. Intrauterine at 39 weeks. 2. History of active herpes simplex virus lesion. PROCEDURE: Primary low transverse section. HOSPITAL COURSE: As expected. Please see chart for full details. LABORATORY DATA: Please see chart. COMPLICATIONS: None. DISCHARGE CONDITION: Stable. CONSULTATION: Anesthesia. DISCHARGE INSTRUCTIONS: 1. Diet: Regular. 2. Medications: a. Percocet 5/325 one to two p.o. every 4-6 hours p.r.n. pain. b. Motrin 800 one p.o. every 8 hours p.r.n. pain. 3. Followup in one week. Restrictions: Pelvic rest for 6 weeks. No heavy lifting. May drive when pain free and no longer on narcotics. [facility] Evaluation note Note Date & Type Note Facility Evaluation note Diagnosis Encounter for weight management- Primary Well woman exam with routine gynecological exam Routine gynecological examination Breast cancer screening by mammogram documented in this encounter [facility] Summary Purpose Family History No Family History Records FoundNo Family History Records Found Advance Directives No Advanced Directives Records FoundNo Advanced Directives Records Found Additional Source Comments INFORMATION SOURCE (unrecogn ized section and content) DATE CREATED AUTHOR 10/11/2022 [facility] DATE CREATED AUTHOR AUTHOR'S ORGANIZ ATION 10/11/2023 [facility] EPIC Reason for Visit (unrecogniz ed section and content) Reason Comments Well Women Visit FOR RECORDS PERTAINING TO PATIENTS WHO ARE OR HAVE BEEN ENROLLED IN A CHEMICAL DEPENDENCY/SUBSTANCEABUSE PROGRAM, SOME INFORMATION MAY BE OMITTED. This clinical summary was aggregated from multiple sources. Caution should be exercised in using it in the provision of clinical care. This summary normalizes information from multiple sources, and as a consequence, information in this document may materially change the coding, format and clinical context of patient data. In addition, data may be omitted in some cases. CLINICAL DECISIONS SHOULD BE BASED ON THE PRIMARY CLINICAL RECORDS. [facility] [employer] provides no warranty or guarantee of the accuracy or completeness of information in this document.
[2024-10-25 14:13] LABS: Age Gdln ACOG Testing Note (.); HPV Aptima Negative (Negative); IGP, Aptima HPV, rfx 16/18,45 Note (.)
== END 2024-10-22 21:38 | disposition home or self-care (01) ==
LOC: LAB 21:37
PROVIDERS: Visit Provider Obstetrics & Gynecology
DX: Z01.419 Encounter for gynecological examination (general) (routine) without abnormal findings (principal)
CPT/HCPCS: 87624; 88175